=== PATIENT | female | born 1990 | race Two or more races ===

== ENCOUNTER 2022-07-23 05:18 | Day surgery (SDC) | payer OTHER ==
[~2022-07-23] VITALS: Ht 149.9 cm; Wt 83.9 kg
== END 2022-07-23 12:40 | disposition home or self-care (01) ==
LOC: CIR.AMB 05:18
PROVIDERS: ATTEND Orthopaedic Surgery Hand Surgery
DX: D36.12 Benign neoplasm of peripheral nerves and autonomic nervous system, upper limb, including shoulder (principal); M65.231 Calcific tendinitis, right forearm; G47.33 Obstructive sleep apnea (adult) (pediatric); Z99.89 Dependence on other enabling machines and devices